=== PATIENT | male | born 1980 | race Caucasian/White ===

== ENCOUNTER 2020-10-07 18:34 | Emergency (ER) | payer OTHER, SELFPAY ==
[2020-10-07 18:53] VITALS: BP 150/85; PULSE 86; RESP 14; TEMP 36.3; O2SAT 99
--- NOTE | 2020-10-07 19:08 | ED.URI ---
HPI - URI/Sore Throat General Chief Complaint: Upper Respiratory Infection Stated Complaint: cold sx Time Seen by Provider: 10/07/20 19:08 Source: patient and RN notes reviewed Mode of arrival: ambulatory Limitations: no limitations History of Present Illness HPI Narrative: 40-year-old male who presents to express care who presents to express care with complaints of feeling feverish since last p.m. having sore throat, feeling fatigued and sleepy. States he felt better this morning so he did proceed to work but started feeling worse so he was sent home. Patient states that he has no cough or ear pain, states his nose feels clogged but has post nasal drainage. Patient admits to generalized body aches, denies any dyspnea, lungs clear to auscultation with no tachypnea or accessory muscle use. Patient denies any loss of taste or smell. MD elicited complaint: fever (Tactile) and sore throat Onset (ago): day(s) (1) Severity: moderate Pain scale (0-10): 7 Able to tolerate fluids by mouth: Yes Associated symptoms: fever, myalgias, nasal congestion and sore throat Treatments prior to arrival: none Related Data Home Medications Medication Instructions Recorded Confirmed No Home Medications 10/07/20 10/07/20 Allergies Allergy/AdvReac Type Severity Reaction Status Date / Time No Known Allergies Allergy Verified 10/07/20 19:08 Review of Systems Review of Systems: Narrative: CONSTITUTIONAL: Denies fever, chills, or sweats. EYES: Denies visual changes, redness, or discharge. ENT: Denies rhinorrhea, congestion, sore throat, or otalgia. CARDIOVASCULAR: Denies chest pain, palpitations, or edema. RESPIRATORY: Denies cough or dyspnea. GASTROINTESTINAL: Denies abdominal pain, nausea, vomiting, or diarrhea. GENITOURINARY: Denies dysuria or hematuria. SKIN: Denies rash or itching. MUSCULOSKELETAL: Denies back pain, joint pain, or myalgia. NEUROLOGIC: Denies headache, numbness, or weakness. PSYCHIATRIC: Denies anxiety or depression. All systems reviewed & are unremarkable except as noted in HPI and below PMFSH Past Medical History Medical History (Updated 10/07/20 @ 19:23 by Vicky Barton NP) Fracture, femur ORIF left Pancreatitis Social History Social History (Updated 10/07/20 @ 19:37 by Vicky Barton NP) Smoking status: Former smoker Tobacco type: cigarettes Smoking end date: 11/27/13 Alcohol intake: never Substance use: never Living arrangements: with family Gender identity (if verbalized by the patient): Male Comments At time of signature, agree with nursing past medical, surgical, social history. There is no relevant family history pertinent to the presenting complaint Exam Narrative: Exam Narrative: GENERAL: Well-appearing, well-nourished, and in no acute distress reports fatigue and body aches. HEAD: Normocephalic, atraumatic. EYES: PERRLA and EOMI. ENT: Nares mild redness to turbinates,clear rhinorrhea no epistaxis. Mucous membranes moist.TM's normal with good light reflex, throat red with tonsils enlarged and post nasal drainage noted NECK: Supple.no lymphadenopathy CHEST: Clear to auscultation. No respiratory distress.SAO2 99% on room air HEART: Regular rate and rhythm. No murmur heard. Normal peripheral pulses. ABDOMEN: Soft, nontender, nondistended, normal active bowel sounds. EXTREMITIES: Normal range of motion. No edema. SKIN: Warm, dry, no rash. NEURO: No focal deficits. Alert and oriented x3. Course Vital Signs Vital signs: Vital Signs Temperature 36.3 C L 10/07/20 18:53 Pulse Rate 86 10/07/20 18:53 Respiratory Rate 14 10/07/20 18:53 Blood Pressure 150/85 H 10/07/20 18:53 Pulse Oximetry 99 10/07/20 18:53 Temperature 36.3 C L 10/07/20 18:53 Pulse Rate 86 10/07/20 18:53 Respiratory Rate 14 10/07/20 18:53 Blood Pressure 150/85 H 10/07/20 18:53 Pulse Oximetry 99 10/07/20 18:53 MDM - URI/Sore Throat Differential Diagnosis Differential diagnosi
== END 2020-10-07 19:28 | disposition home or self-care (01) ==
PROVIDERS: Emergency Provider Registered Nurse
DX: J06.9 Acute upper respiratory infection, unspecified (principal); J02.9 Acute pharyngitis, unspecified; Z20.828 Contact with and (suspected) exposure to other viral communicable diseases; Z87.891 Personal history of nicotine dependence
CPT/HCPCS: 87081; 87804; 87880; 99213; G0463